=== PATIENT | male | born 1960 | race Caucasian/White ===

== ENCOUNTER → 2018-12-12 | Outpatient (CLI) | payer OTHER ==
[2018-12-12 16:38] LABS: Basophils # (A) 0.1 k/uL (0-0.2); Basophils % (A) 0 %; Eosinophils # (A) 0.3 k/uL (0-0.7); Eosinophils % (A) 2 %; HCT 42.5 % (39.0-53.0); HGB 14.3 gm/dL (13.0-17.5); Lymphocytes # (A) 4.9 k/uL (1.0-4.8); Lymphocytes % (A) 45 %; MCH 30.8 pg (25.0-35.0); MCHC 33.7 g/dL (31.0-37.0); MCV 91.5 fL (80.0-100.0); Mean Platelet Volume 7.2; Monocytes # (A) 0.6 k/uL (0-1.0); Monocytes % (A) 5 %; Neutrophils % (A) 46 %; Platelet Count 370 k/uL (150-450); RBC 4.65 m/uL (4.30-5.90); RDW 13.9 % (11.5-15.5); WBC 10.9 k/uL (3.8-10.6)
[2018-12-12 16:48] LABS: Potassium 4.4 mmol/L (3.5-5.1)
== END | disposition home or self-care (01) ==
LOC: LABWHC1 15:27
PROVIDERS: ATTEND Orthopaedic Surgery
DX: Z01.812 Encounter for preprocedural laboratory examination (principal); M75.42 Impingement syndrome of left shoulder
CPT/HCPCS: 36415; 80051; 85025; 93005

== ENCOUNTER 2018-12-21 09:24 | Day surgery (SDC) | payer OTHER ==
[2018-12-19 08:51] VITALS: BMI 28.7
--- NOTE | 2018-12-20 13:37 | HP ---
HISTORY AND PHYSICAL Surgery is 12/21/2018. Ciro Fragoso is a 58-year-old patient seen with progressive left shoulder pain. We discussed treatment options with him. He elected to proceed with left shoulder arthroscopy. Consent was obtained. PAST MEDICAL HISTORY: His past medical history is all-[id number] diabetes, hypertension. PAST SURGICAL HISTORY: Spine surgery. DAILY MEDICATIONS: 1. Lotrel. 2. Metformin. ALLERGIES: MORPHINE. SOCIAL HISTORY: Denies tobacco use. PHYSICAL EXAMINATION: PHYSICAL EVALUATION OF THE LEFT SHOULDER: Flexion 100 degrees, abduction 90 degrees, external rotation is 30 degrees with weakness. Tenderness along the anterolateral acromion and rotator cuff insertion site. Impingement positive at 90 degrees. Distal neurovascular exam is intact. Radiographs of the left shoulder type 2 anterior acromion, acromioclavicular joint osteoarthritis and cystic changes of the greater tuberosity. An MRI of left shoulder revealed labral tear, biceps partial tear and tendinitis. IMPRESSION: Left shoulder impingement with labral tear, partial biceps tendon tear and possible rotator cuff tear. PLAN: Left shoulder arthroscopy with subacromial decompression, possible arthroscopic rotator cuff repair, probable biceps tenotomy and debridement. MMODL / IJN: [id number] /
[~2018-12-21 09:24] MED LIST: DEXAMETHASONE SOD PHOSPHATE 10 MG/ML 1 ML VIAL IV ONE; HYDROmorphone 0.5 MG/0.5 ML SYRINGE IVP PRN; MIDAZOLAM 2 MG/2 ML VIAL IV PRN; ONDANSETRON 4 MG/2 ML VIAL IVP ONE; ROPIVACAINE 0.2%-NS ON-Q PUMP 2 MG/ML EACH MISCELLANE ONE
[2018-12-21] MEDS: LACTATED RINGERS 1,000 ML IV SCH ×2 (09:56→11:53)
[2018-12-21] MEDS ORDERED: LIDOCAINE 1% 20 ML VIAL (10MG/ML) FOR IV START INTRADERMA ONE (09:56)
[2018-12-21 09:59] LABS: Glucose,Whole Blood 186 mg/dL (75-99)
[2018-12-21] MEDS ORDERED: fentaNYL (PF) 50 MCG/ML 2 ML AMP IVP ONE (10:13)
[2018-12-21] MEDS ORDERED: ROPIVACAINE 5 MG/ML 30 ML VIAL MISCELLANE ONE (10:18)
[2018-12-21] MEDS ORDERED: DEXAMETHASONE SOD PHOSPHATE 10 MG/ML 1 ML VIAL IV ONE (10:19)
[2018-12-21] MEDS ORDERED: DEXAMETHASONE SOD PHOSPHATE 10 MG/ML 1 ML VIAL IM ONE (10:19)
[2018-12-21] MEDS ORDERED: ROPIVACAINE 0.2%-NS ON-Q PUMP 1,090 MG, EMPTY PAIN BALL 1 EACH MISCELLANE PRN (10:37)
--- NOTE | 2018-12-21 10:38 | P.ANPRN ---
Procedure Note - Anesthesia - Nerve Block Performed Left Interscalene Infusion Time Out Performed: Yes Date of Procedure: 12/21/18 Procedure Start Time: 10:34 Procedure Stop Time: 10:42 Location of Patient Procedure: PreOp Indication: Acute Post-Operative Pain, Requested by physician Sedation Type: Sedate with meaningful contact maintained Preparation: Sterile Prep, Sterile Dressing Position: Sitting Catheter Depth at Skin (cm): 6 Catheter: Indwelling Needle Types: On-Q Needle Gauge: 18, 20 Technique: Ultrasound Injectate: 0.5% Ropivacaine (see comment for volume) (20 ml + decadron 10 mg) Blood Aspirated: No Pain Paresthesia on Injection Noted: No Resistance on Injection: Normal Events: Uneventful and Well Tolerated
[2018-12-21] MEDS ORDERED: SUCCINYLCHOLINE CHLORIDE VIAL 200 MG/10 ML VIAL IV ONE (12:09)
[2018-12-21] MEDS ORDERED: LIDOCAINE 1% INJ 10MG/ML (20 ML MDV) ONE (12:09)
[2018-12-21] MEDS ORDERED: MIDAZOLAM 2 MG/2 ML VIAL ONE (12:09)
[2018-12-21] MEDS ORDERED: PROPOFOL 10 MG/ML 20 ML VIAL IV ONE (12:09)
[2018-12-21] MEDS ORDERED: fentaNYL (PF) 50 MCG/ML 2 ML AMP ONE (12:09)
--- NOTE | 2018-12-21 13:52 | P.OP ---
Date of Procedure: 12/21/18 Preoperative Diagnosis: Left shoulder impingement Postoperative Diagnosis: 1. Left shoulder rotator cuff tear 2. Left shoulder impingement 3. Left shoulder acromioclavicular joint osteoarthritis 4. Left shoulder superior labral tear Procedure(s) Performed: 1. Left shoulder arthroscopic rotator cuff repair 2. Left shoulder arthroscopic subacromial decompression 3. Left shoulder arthroscopic Rosie procedure 4. Left shoulder debridement labral tear Implants: 14.75 Arthrex swivel lock anchor Anesthesia: GETA, regional (Interscalene block/catheter) Surgeon: Venkatesh Eagle Long Chain Beamer #1: Sudheer Mishra Estimated Blood Loss (ml): 7 Pathology: none sent Condition: stable Disposition: PACU Indications for Procedure: 58-year-old patient seen with progressive left shoulder pain. After options were discussed, he elected to proceed with arthroscopy. Operative Findings: See description of procedure Description of Procedure: Patient underwent an interscalene block/catheter by department of anesthesia for postoperative pain management. The patient was then taken to the operative suite. The patient underwent a general anesthetic by the [facility]. The patient was placed into a lateral position and secured. There was appropriate padding of the bony prominence. Left shoulder was then prepped and draped in normal sterile orthopedic fashion. We placed the extremity in 10 pounds of longitudinal traction. A posterior incision was now made for a posterior working portal site. The trocar and cannula were inserted into the glenohumeral joint. Arthroscopy was initiated. Spinal needle was now inserted anteriorly, to ascertain the anterior working portal site. An incision was now made in that area, a trocar was inserted followed by a probe. There was some superficial tearing of the superior labrum. The biceps tendon appeared intact and stable. The glenohumeral joint appeared stable. The motorize shaver was utilized to debride out the superficial tearing of the superior labrum. The residual labrum was stable. Instruments now removed from the glenohumeral joint. Utilizing the posterior working portal site, the trocar and cannula were inserted into the subacromial space. Arthroscopy initiated. I made an incision 2 fingerbreadths lateral to the acromion. I introduced my trocar followed by my ArthroCare ablator. I now began ablating thick subacromial bursal tissue, which exposed the undersurface of the anterior acromion. There was diminished subacromial space. There was a very prominent anterior acromion. A motorized bur was introduced and a subacromial decompression was performed. I also excised some osteophytes off the inferior aspect of the distal clavicle. The AC joint was visualized and noted to be fairly arthritic. The motorized bur was introduced in the anterior portal site and a Rosie procedure was performed without difficulty, decompressing the AC joint nicely. I turned my attention to the rotator cuff. There was some partial tearing of the distal supraspinatus tendon area. After probing the area was a full-thickness perforation noted. I used a motorized shaver to debride the area down getting down to stable tendon tissue. The defect measured 1.5 cm. I abraded the footprint with a motorized bur. I passed 2 everted mattress sutures through good bites of rotator cuff tendon. I now punched a hole in the footprint for insertion of an anchor. We now passed all 4 limbs of suture through a 4.75 Arthrex swivel lock anchor. I introduced the eyelit into the pre-punched hole while Som NOVA tensioned the sutures appropriately and introduced the anchor with good purchase and fixation noted. All residual suture limbs were now clipped. We had good compression of the tendon along the entire footprint. I injected 1 mL Renyte intra-articular. Instruments now removed from the portal sites. All portal sites were approximated with nylon suture. Sterile dressings were applied followed by a shoulder sling. Sudheer NOVA assisted in this complex case. The patient was awakened, transferred to a bed, and taken to recovery in stable condition.
[2018-12-21 14:16] VITALS: TEMP 97
[2018-12-21 14:23] VITALS: RESP 16
[2018-12-21 14:38] LABS: Glucose,Whole Blood 227 mg/dL (75-99)
[2018-12-21] MEDS ORDERED: INSULIN ASPART (NovoLOG) 100 UNIT/ML VIAL SQ ONE (14:41)
[2018-12-21 15:09] VITALS: BP 117/76; PULSE 106
[2018-12-21 15:28] LABS: Glucose,Whole Blood 246 mg/dL (75-99)
== END 2018-12-21 15:54 | disposition home or self-care (01) ==
LOC: OR 09:24
PROVIDERS: ATTEND Orthopaedic Surgery
DX: M75.122 Complete rotator cuff tear or rupture of left shoulder, not specified as traumatic (principal); M25.812 Other specified joint disorders, left shoulder; M19.012 Primary osteoarthritis, left shoulder; S43.492A Other sprain of left shoulder joint, initial encounter; X58.XXXA Exposure to other specified factors, initial encounter; M25.712 Osteophyte, left shoulder; I10 Essential (primary) hypertension; E11.9 Type 2 diabetes mellitus without complications; F17.210 Nicotine dependence, cigarettes, uncomplicated; Z79.84 Long term (current) use of oral hypoglycemic drugs; Z79.899 Other long term (current) drug therapy; Z88.5 Allergy status to narcotic agent
CPT/HCPCS: 29827; 29826; 29824; 64416; C1713; C1765; C1772; J2250; J0330; J1100; J0690; J2405; J2001; J3010; J2795 ×2; J2704; 64415

== ENCOUNTER → 2020-05-05 | Outpatient (CLI) | payer OTHER ==
--- NOTE | 2020-05-05 11:08 | US ---
EXAMINATION TYPE: US abdomen complete DATE OF EXAM: 05/05/2020 COMPARISON: NONE CLINICAL HISTORY: K81.0 Acute Cholecystitis. Severe epigastric pain x 1 week with some relief by limi ting fatty foods; prior renal stones per patient EXAM MEASUREMENTS: Liver Length: 12.0 cm Gallbladder Wall: 0.2 cm CBD: 0.2 cm Spleen: 10.8 cm Right Kidney: 11.5 x 6.1 x 5.1 cm Left Kidney: 12.2 x 5.7 x 6.1 cm Pancreas: heterogeneous Liver: heterogeneous as areas of focal fatty infiltrate and focal fatty sparing are noted in right l obe near dome Gallbladder: wnl Evidence for sonographic Masters's sign: no CBD: wnl Spleen: wnl Right Kidney: junctional fat wedge noted mid cortex periphery Left Kidney: hyperechoic,shadowing foci noted lower pole may be vascular wall calcifications vs. sma ll renal stones , former is favored. Upper IVC: wnl Abd Aorta: size is wnl, mid aorta is gassed out Mildly heterogeneous poorly visualized thyroid. No aneurysm and visualized portions of the abdominal aorta. Markedly heterogeneous hyperechoic liver without intrahepatic ductal dilatation. Evaluation fo r focal masses suboptimal due to the heterogeneity. No shadowing mobile gallstones. Kidneys symmetric and normal in size without concerning mass or hydronephrosis. Spleen is normal in size. IMPRESSION: Suboptimal study. No shadowing mobile gallstones without sonographic evidence for acute c holecystitis. Probable diffuse fatty infiltration of liver. Suboptimal visualization of heterogeneous pancreas. If concern for pancreatitis further investigation with multiphase contrast-enhanced CT wou ld be warranted.
== END | disposition home or self-care (01) ==
LOC: RADUSWWP 10:02
PROVIDERS: ATTEND Family Medicine
DX: K81.0 Acute cholecystitis (principal)
CPT/HCPCS: 76700

== ENCOUNTER → 2020-05-28 | Outpatient (CLI) | payer OTHER ==
[2020-05-28 14:21] LABS: African American GFR (CKD) >90 (>60 ml/min/1.73 sqM); Blood Urea Nitrogen 14 mg/dL (9-20); Non-African American GFR(CKD) >90 (>60 ml/min/1.73 sqM)
--- NOTE | 2020-05-28 16:53 | CT ---
EXAMINATION TYPE: CT abdomen pelvis w con DATE OF EXAM: 05/28/2020 COMPARISON: None INDICATION: abdominal pain, pancreatitis DLP: 1309.8 mGycm, Automated exposure control for dose reduction was used. CONTRAST: 100 mL of Isovue 370. Study performed with Oral Contrast TECHNIQUE: Axial images were obtained from above the diaphragm to the pubic rami in the axial plane a t 5 mm thick sections. Reconstructed images are reviewed on the computer in the coronal plane. FINDINGS: Limited CT sections are obtained the lung bases. The lung bases are clear. CT ABDOMEN: Liver: Normal Spleen: Normal Pancreas: Normal Adrenal glands: The adrenal glands are normal. Gallbladder: Normal Kidneys: No masses are evident. No hydronephrosis is present. No cysts are present. Delayed images were obtained through the kidneys, which remain unremarkable. Aorta: Vascular calcification is within the aorta. Inferior vena cava: Normal. CT PELVIS: Loops of bowel within the abdomen and pelvis are normal. Study is performed with oral contrast. O ral contrast extends to the distal small bowel loops. Fecal debris is within the colon. Note is made of diverticular changes within the sigmoid colon. Appendix: Normal as visualized. Urinary bladder: Normal. Genitourinary structures: Prostate is prominent Osseous structures: No suspicious lytic or sclerotic lesions. IMPRESSIONS: 1. Prominent prostate. 2. Mild fecal retention. 3. Diverticulosis without acute diverticulitis. 4. No suspicious radiographic changes to suggest acute pancreatitis.
== END | disposition home or self-care (01) ==
LOC: RADCTMAIN 13:37
PROVIDERS: ATTEND Family Medicine
DX: K57.90 Diverticulosis of intestine, part unspecified, without perforation or abscess without bleeding (principal); K59.00 Constipation, unspecified; K85.90 Acute pancreatitis without necrosis or infection, unspecified
CPT/HCPCS: 82565; 84520; 74177; 36415; Q9967

== ENCOUNTER → 2022-04-07 | Outpatient (CLI) | payer OTHER ==
[2022-04-07 15:14] LABS: Basophils # (A) 0.05 X 10*3/uL (0.00-0.10); Basophils % (A) 0.6 %; Eosinophils # (A) 0.32 X 10*3/uL (0.04-0.35); Eosinophils % (A) 3.6 %; HCT 40.4 % (39.6-50.0); HGB 13.6 g/dL (13.0-17.0); Immature Grans, Automated 0.3 %; Lymphocytes # (A) 4.05 X 10*3/uL (0.90-5.00); Lymphocytes % (A) 45.1 %; MCH 30.4 pg (27.0-32.0); MCHC 33.7 g/dL (32.0-37.0); MCV 90.4 fL (80.0-97.0); Mean Platelet Volume 9.7 fL (9.5-12.2); Monocytes # (A) 0.64 X 10*3/uL (0.20-1.00); Monocytes % (A) 7.1 %; NRBC Per 100 WBC 0 /100 WBCS (0.0-0.0); Neutrophils # (A) 3.89 X 10*3/uL (1.80-7.70); Neutrophils % (A) 43.3 %; Platelet Count 417 X 10*3/uL (140-440); RBC 4.47 X 10*6/uL (4.40-5.60); WBC 8.98 X 10*3/uL (4.50-10.00)
[2022-04-07 15:43] LABS: Anion Gap 12.5 mmol/L (10.00-18.00); Carbon Dioxide 24.5 mmol/L (20.0-27.5); Potassium 4.9 mmol/L (3.5-5.5)
== END | disposition home or self-care (01) ==
LOC: LABPAT 08:55
PROVIDERS: ATTEND Orthopaedic Surgery
DX: Z01.818 Encounter for other preprocedural examination (principal); M23.92 Unspecified internal derangement of left knee; R00.0 Tachycardia, unspecified
CPT/HCPCS: 80051; 85025; 93005